=== PATIENT | female | born 1955 | race Caucasian/White ===

== ENCOUNTER → 2022-03-30 | Outpatient (CLI) | payer MEDICARE | LOC: LAB 09:27 → LAB SHORT 09:27 | DX: H60.393 Other infective otitis externa, bilateral (principal) | CPT/HCPCS: 87070; 87075; 87077; 87147; 87186; 87205 ==

== ENCOUNTER → 2023-05-24 | Outpatient (CLI) | payer MEDICARE | LOC: PLD 09:02 → LAB SHORT 09:02 | DX: D48.5 Neoplasm of uncertain behavior of skin (principal) | CPT/HCPCS: 88305 ==